=== PATIENT | female | born 1975 | race Asian ===

== ENCOUNTER 2017-07-31 11:52 | Observation (INO) | payer BC ==
[~2017-07-31] VITALS: Ht 157.5 cm; Wt 56.7 kg
[2017-07-31] VITALS (9 sets, daily range): BP systolic 110–132; BP diastolic 63–81
[~2017-07-31 11:52] MED LIST: LR 1000ml ONE; NS Irrig 1000ml ONE; Sterile Water Irrig 1000ml IRRIG ONE; Zemuron 50mg/5ml Inj IV ONE
[2017-07-31 12:31] LABS: BASOPHILS % (AUTO) 0.5 % (0.0-2.0); EOSINOPHILS % (AUTO) 0.2 % (0.0-3.0); HEMATOCRIT 29.2 % (37.0-47.0); HEMOGLOBIN 9.7 G/DL (12.0-16.0); LYMPHOCYTES % (AUTO) 20.9 % (20.0-45.0); MEAN CORPUSCULAR VOLUME 90 FL (80-99); MONOCYTES % (AUTO) 8.9 % (1.0-10.0); NEUTROPHILS % (AUTO) 69.6 % (45.0-75.0); PLATELET COUNT 181 K/UL (150-450); RED BLOOD COUNT 3.24 M/UL (4.20-5.40); RED CELL DISTRIBUTION WIDTH 11.5 % (11.6-14.8); WHITE BLOOD COUNT 10.7 K/UL (4.8-10.8)
--- NOTE | 2017-07-31 12:40 | Emergency Room Report ---
History of Present Illness General Chief Complaint: General Complaint Source: Patient Present Illness HPI This patient presents at the instruction of her plastic surgeon. She underwent a abdominoplasty yesterday. She presented to her plastic surgeon's office this morning. She had significant amount of blood in her JEROME drains. This is much more than typical. The patient's plastic surgeon is concerned she has a hematoma. Patient otherwise has no complaints. She denies pain. She denies fever or chills. She denies nausea or vomiting. She denies chest pain or shortness of breath. Allergies: Coded Allergies: No Known Allergies (Unverified , 07/31/17) Patient History Past Medical History: asthma Social History: Denies: smoking, alcohol use, drug use Reviewed Nursing Documentation: PMH: Agreed; PSxH: Agreed Nursing Documentation-PMH Past Medical History: No History, Except For Hx Asthma: Yes Review of Systems All Other Systems: negative except mentioned in HPI Physical Exam Vital Signs Date Time Temp Pulse Resp B/P (MAP) Pulse Ox O2 Delivery O2 Flow Rate FiO2 07/31/17 11:51 100.0 88 16 118/77 98 Room Air 100.0 Sp02 EP Interpretation: reviewed, normal General Appearance: no apparent distress, alert, GCS 15, non-toxic Head: normocephalic, atraumatic Eyes: bilateral eye normal inspection, bilateral eye PERRL ENT: hearing grossly normal, normal pharynx, no angioedema, normal voice Neck: full range of motion, supple/symm/no masses Respiratory: chest non-tender, lungs clear, normal breath sounds, speaking full sentences Cardiovascular #1: regular rate, rhythm, no edema Gastrointestinal: soft, non-distended, other - Abdominal binder in place. JEROME drains with blood. Rectal: deferred Musculoskeletal: back normal, gait/station normal, normal range of motion, non- tender Neurologic: alert, oriented x3, responsive, motor strength/tone normal, sensory intact, speech normal Psychiatric: judgement/insight normal, memory normal, mood/affect normal, no suicidal/homicidal ideation Skin: normal color, no rash, warm/dry, well hydrated Medical Decision Making Diagnostic Impression: Primary Impression: Post-op bleeding ER Course This patient has postoperative bleeding. Likely this patient has a bleeding blood vessel. The patient's plastic surgeon was bedside. The patient will be admitted for surgical revision and identification of location of the bleeding vessel. At this time, the patient's hemoglobin is 9.7 the patient's blood pressures normal and stable. The patient's heart rate is also normal. So at this time, although I will type and cross this patient as a precaution, she does not require blood transfusion. She is admitted for surgical revision of her abdominoplasty. EKG Diagnostic Results Rate: normal Rhythm: NSR ST Segments: no acute changes Rhythm Strip Diag. Results EP Interpretation: yes Rate: 90's Rhythm: NSR, no PVC's, no ectopy Last Vital Signs Date Time Temp Pulse Resp B/P (MAP) Pulse Ox O2 Delivery O2 Flow Rate FiO2 07/31/17 12:36 98.7 82 17 112/75 100 Room Air 98.7 Disposition: ADMITTED INPATIENT Condition: Serious Referrals: NOT CHOSEN CALI/,REFERRING (PCP) BELLA STONE D.O. July 31, 2017 12:40
[2017-07-31 12:42] LABS: ANION GAP 4 mmol/L (5-15); BLOOD UREA NITROGEN 9 mg/dL (7-18); CALCIUM 8.3 MG/DL (8.5-10.1); CARBON DIOXIDE 30 MMOL/L (21-32); CHLORIDE 108 MMOL/L (98-107); CREATININE 0.9 MG/DL (0.55-1.30); POTASSIUM 3.9 MMOL/L (3.5-5.1); SODIUM 142 MMOL/L (136-145)
[2017-07-31 12:47] LABS: ALANINE AMINOTRANSFERASE 25 U/L (12-78); ALKALINE PHOSPHATASE 36 U/L (46-116); ASPARTATE AMINO TRANSFERASE 36 U/L (15-37); BILIRUBIN,TOTAL 0.3 MG/DL (0.2-1.0)
[2017-07-31 13:06] LABS: INR 1.1 (0.9-1.1)
[2017-07-31] MEDS ORDERED: Albuterol 90mcg Inhaler 8gm INH ONE (14:41)
[2017-07-31] MEDS ORDERED: Bacitracin 50000 Units Vial ONE ×4 (14:53→17:39)
[2017-07-31] MEDS ORDERED: NS Irrig 1000ml IRRIG ONE ×2 (15:00)
[2017-07-31] MEDS ORDERED: Bacitracin Oint 15gm Tube TOPIC ONE (15:09)
--- NOTE | 2017-07-31 15:32 | Immediate Post-Op Evaluation ---
Immediate Post-Op Evalulation Immediate Post-Op Evalulation Procedure: Evacuation Abdominal Hematoma Date of Evaluation: July 31, 2017 Time of Evaluation: 20:47 IV Fluids: 400 LR Blood Products: 0 Estimated Blood Loss: 30 Urinary Output: 100 Blood Pressure Systolic: 132 Blood Pressure Diastolic: 63 Pulse Rate: 109 Respiratory Rate: 16 O2 Sat by Pulse Oximetry: 100 Temperature (Fahrenheit): 99 Pain Score (1-10): 2 Nausea: No Vomiting: No Complications 0 Patient Status: awake, reacts, patent, none Hydration Status: adequate Dru Gram Ancef IV Given Within 1 Hr of Incision: Yes Time Given: 15:16 Sid Schwartz MD July 31, 2017 15:32
--- NOTE | 2017-07-31 15:32 | 48 Hour Post Anesthesia Eval ---
Post Anesthesia Evaluation Procedure: Evacuation Hematoma Date of Evaluation: July 31, 2017 Time of Evaluation: 22:53 Blood Pressure Systolic: 121 0: 72 Pulse Rate: 89 Respiratory Rate: 18 Temperature (Fahrenheit): 98.6 O2 Sat by Pulse Oximetry: 100 Airway: patent Nausea: No Vomiting: No Pain Intensity: 2 Hydration Status: adequate Cardiopulmonary Status: Stable Mental Status/LOC: patient returned to baseline Follow-up Care/Observations: 0 Post-Anesthesia Complications: 0 Follow-up care needed: N/A Sid Schwartz MD July 31, 2017 15:32
--- NOTE | 2017-07-31 15:32 | Anethesia Preoperative Eval ---
Anesthesia Pre-op PMH/ROS General Date of Evaluation: July 31, 2017 Anesthesiologist: Efren ASA Score: ASA 2 - Emergency Mallampati Score Class I : Soft palate, uvula, fauces, pillars visible Class II: Soft palate, uvula, fauces visible Class III: Soft palate, base of uvula visible Class IV: Only hard plate visible Mallampati Classification: Class I Surgeon: Ladi Diagnosis: Hematoma Abdomen Surgical Procedure: Evacuation Abdominal Hematoma Anesthesia History: none Family History: no anesthesia problems Allergies: Coded Allergies: No Known Allergies (Unverified , 07/31/17) Medications: see eMAR Past Medical History Pulmonary: Reports: asthma PSxH Narrative: Abdominoplasty yesterday Anesthesia Pre-op Phys. Exam Physician Exam Last Vital Signs Date Time Temp Pulse Resp B/P (MAP) Pulse Ox O2 Delivery O2 Flow Rate FiO2 07/31/17 14:59 98.9 94 16 105/69 98 Room Air 98.7 Constitutional: NAD Neurologic: CN 2-12 intact Cardiovascular: RRR Respiratory: CTA Gastrointestinal: S/NT/ND Airway Exam Mallampati Score: Class I MO: full ROM: full Teeth: intact Anesthesia Pre-op A/P Labs Hematology Test 07/31/17 12:14 White Blood Count 10.7 K/UL (4.8-10.8) Red Blood Count 3.24 M/UL (4.20-5.40) L Hemoglobin 9.7 G/DL (12.0-16.0) L Hematocrit 29.2 % (37.0-47.0) L Mean Corpuscular Volume 90 FL (80-99) Mean Corpuscular Hemoglobin 30.1 PG (27.0-31.0) Mean Corpuscular Hemoglobin Concent 33.3 G/DL (32.0-36.0) Red Cell Distribution Width 11.5 % (11.6-14.8) L Platelet Count 181 K/UL (150-450) Mean Platelet Volume 8.1 FL (6.5-10.1) Neutrophils (%) (Auto) 69.6 % (45.0-75.0) Lymphocytes (%) (Auto) 20.9 % (20.0-45.0) Monocytes (%) (Auto) 8.9 % (1.0-10.0) Eosinophils (%) (Auto) 0.2 % (0.0-3.0) Basophils (%) (Auto) 0.5 % (0.0-2.0) Coagulation Test 07/31/17 12:14 Prothrombin Time 11.2 SEC (9.30-11.50) Prothromb Time International Ratio 1.1 (0.9-1.1) Activated Partial Thromboplast Time 28 SEC (23-33) Chemistry Test 07/31/17 12:14 Sodium Level 142 MMOL/L (136-145) Potassium Level 3.9 MMOL/L (3.5-5.1) Chloride Level 108 MMOL/L (98-107) H Carbon Dioxide Level 30 MMOL/L (21-32) Anion Gap 4 mmol/L (5-15) L Blood Urea Nitrogen 9 mg/dL (7-18) Creatinine 0.9 MG/DL (0.55-1.30) Estimat Glomerular Filtration Rate > 60 mL/min (>60) Glucose Level 115 MG/DL (74-106) H Calcium Level 8.3 MG/DL (8.5-10.1) L Total Bilirubin 0.3 MG/DL (0.2-1.0) Aspartate Amino Transf (AST/SGOT) 36 U/L (15-37) Alanine Aminotransferase (ALT/SGPT) 25 U/L (12-78) Alkaline Phosphatase 36 U/L (46-116) L Total Protein 6.1 G/DL (6.4-8.2) L Albumin 3.0 G/DL (3.4-5.0) L Globulin 3.1 g/dL Albumin/Globulin Ratio 1.0 (1.0-2.7) Human Chorionic Gonadotropin, Qual Negative Serum Test Test 07/31/17 12:14 Human Chorionic Gonadotropin, Qual Negative Risk Assessment & Plan Assessment: ASA 2E Plan: GA, BIS Status Change Before Surgery: No Pre-Antibiotics Dru Gram Ancef IV Given Within 1 Hr of Incision: Yes Time Given: 15:16 Sid Schwartz MD July 31, 2017 15:32
[2017-07-31] MEDS ORDERED: LR 1000ml 1,000 ML IVLG SCH ×2 (15:43→21:15)
[2017-07-31] MEDS ORDERED: DiphenhydrAMINE 50mg/ml Inj IVP PRN ×2 (15:45→21:15)
[2017-07-31] MEDS ORDERED: fentaNYL 100 mcg/2 mL IV PRN ×2 (15:45→21:15)
[2017-07-31] MEDS ORDERED: HYDROcodone/Acetamin 7.5/325 tab ORAL PRN ×2 (15:45→21:15)
[2017-07-31] MEDS ORDERED: Labetalol 5mg/ml 20ml vial IV PRN ×2 (15:45→21:15)
[2017-07-31] MEDS ORDERED: Norco 5mg/325mg tab ORAL PRN ×4 (15:45→22:45)
[2017-07-31] MEDS ORDERED: Atropine Inj 1mg/10ml Syr IV PRN ×2 (15:45→21:15)
[2017-07-31] MEDS ORDERED: Metoclopramide 10mg/2ml Inj IVP PRN ×2 (15:45→21:15)
[2017-07-31] MEDS ORDERED: Midazolam 2mg/2ml Inj IVP PRN ×2 (15:45→21:15)
[2017-07-31] MEDS ORDERED: oxyCODONE HCL/Acetaminophen 5/325mg ORAL PRN ×2 (15:45→21:15)
[2017-07-31] MEDS ORDERED: LORazepam Inj 2mg/ml 1ml IV PRN ×2 (15:45→21:15)
[2017-07-31] MEDS ORDERED: Ketorolac 30mg Inj IV PRN ×4 (15:45→21:15)
[2017-07-31] MEDS ORDERED: Acetaminophen (Non formulary) 100 ML IV ONE (15:46)
[2017-07-31] MEDS ORDERED: Propofol 200mg/20ml IV ONE (15:50)
[2017-07-31] MEDS ORDERED: Dexamethasone 4mg/ml vial ONE (15:50)
[2017-07-31] MEDS ORDERED: Sodium Chloride 10ml vial INJ ONE ×2 (15:50→20:10)
[2017-07-31] MEDS ORDERED: Lidocaine 1% MPF 10mg/ml 5ml ONE ×4 (15:50→19:13)
[2017-07-31] MEDS ORDERED: Albuterol 90mcg Inhaler 8gm INH PRN ×2 (20:45→21:15)
[2017-08-01] VITALS: BP 111/74
[2017-08-01 01:29] VITALS: BP 111/74
[2017-08-01 04:00] VITALS: BP 112/66
[2017-08-01 08:00] VITALS: BP 99/67
[2017-08-01] MEDS: Cephalexin 500mg cap ORAL SCH ×3 (09:10→18:00)
[2017-08-01 12:00] VITALS: BP 110/71
--- NOTE | 2017-08-01 19:00 | History and Physical Report ---
DATE OF ADMISSION: 07/31/2017 HISTORY OF PRESENT ILLNESS: This otherwise healthy 41-year-old woman on July 30, 2017 she underwent an abdominoplasty that was uneventful. She spent the evening in Plastic surgery aftercare and the patient reported that she has gone up to use restroom and during one or two of those times in transfer to the bathroom with the [employer] she felt pulling in the abdominal area because her back was unsupported and when she presented to my office the next morning on 07/31/2017, I had noticed that the JEROME drain had sanguinous drainage and also she had lower abdominal swelling and some bruising of her hip. I looked at her JEROME records and it appeared that at around 9:40 p.m., her drain started producing a significant amount of drainage of over 100 mL. I had not been notified and over the course of the evening, it was approximately 200 mL and when she presented to my office the patient reported being a little bit lightheaded. I had not been called about the patient and so I was unable to accurately know how much blood she lost and also how long she had been bleeding and therefore the patient was transported by ambulance to the emergency department. In the emergency department, her vitals were stable. Her EKG was normal. A new set of labs were drawn which were also within normal range and she was cleared for surgery. The plan is for patient to go back to the operating room for evacuation and drainage of abdominal hematoma. PAST MEDICAL HISTORY: Asthma. PAST SURGICAL HISTORY: Breast augmentation. MEDICATIONS: Asthma medications. PHYSICAL EXAMINATION: GENERAL: The patient is alert, oriented, in no acute distress. LUNGS: Clear. She has no wheezing. CARDIOVASCULAR: Regular rate and rhythm. ABDOMEN: Soft. She does have lower abdominal swelling and some bruising in the lower leg area. The abdominal flap that is pink, warm and viable. No bruising on the abdominal flap at all. Her JEROME was sanguinous but they were not rapidly filling in any way. ASSESSMENT: The patient with postop abdominal hematoma status post abdominoplasty likely from movement and transfer. PLAN: Take her to the operating room for evacuation of hematoma. The risks, benefit, and alternative explained to the patient. Informed consent was obtained. Ching Alanis M.D. DR: Daylin JOB#: [id number] CC: PATRICIA
--- NOTE | 2017-08-01 20:15 | Operative Note - Dictated ---
DATE OF OPERATION: 07/31/2017 PREOPERATIVE DIAGNOSIS: Abdominal hematoma, status post abdominoplasty. POSTOPERATIVE DIAGNOSIS: Abdominal hematoma, status post abdominoplasty. PROCEDURE: Evacuation and washout of abdominal hematoma. SURGEON: Ching Alains M.D. ANESTHESIOLOGIST: Sid Schwartz M.D. ANESTHESIA: General with LMA. HISTORY OF PRESENT ILLNESS: This is an otherwise healthy 41-year-old woman. She had abdominoplasty on 07/30/2017, and had an uneventful surgery. Postoperatively upon walking and transfers to the bathroom, the patient developed some bleeding in her JEROME drains and some lower abdominal swelling that I discovered when she came to the office on postop day #1. On review of her JEROME drain record that the nurses had given to her at the postop aftercare, it had been evident that her drainage had increased significantly between 6:30 and 9:40 p.m. Initially, it had been only 6 mL and then one of the drains jumped to 100 mL, and when I saw her, she had lower abdominal swelling that was also tender and full. Her skin flap was completely intact, but she did have bruising along her flank area and there was sanguineous drainage in the drain. Because the patient had bled through the night without my knowledge and also she stated that she felt a little bit lightheaded, decision was made to have her taken to the emergency room in preparation for the operating room for evacuation and drainage of abdominal hematoma. Because I had not been notified of the bleeding and was unaware, the patient already had breakfast at 7:30 in the morning. She also had received her Lovenox in the morning and she was taken to the ER and then the OR to make sure that the patient was stable and had any necessary blood products available in case she needed it. The risks, benefits, and alternatives were discussed with the patient as well as her and informed consent was obtained. They understood that the risks included but not limited to rebleeding, infection, poor appearance of her wound, need for reoperation, injury to the skin flap, and scarring as well as compromised aesthetic result, however, they understood that because the patient was bleeding that she did need to go to the operating room. DESCRIPTION OF PROCEDURE: Prior to induction, the patient was warmed, SCDs were placed and activated, and she received preoperative antibiotics. Then all JEROME drains were removed and she was prepped and draped in standard surgical fashion. It had been evident that the bleeding stemmed from the right lower abdomen. She did have two pinpoint bruises on her lower abdomen where I had placed tacking sutures where I had tacked the flap down to the abdominal fascia. I very carefully using the #11 blade as well as a fine scissors, I very carefully removed her sutures. I first started over the right lower abdomen and when I opened the abdomen, there was clotted blood. The blood had filled the entire lower abdomen even tracking to the other side and also superiorly. I removed the initial clot as I could through a small incision. I examined the area where she had the tacking sutures. The two lower tacking sutures had been torn from the tissue. It was apparent that there had been some sort of shear or trauma to this area and next to the lower abdominal tacking suture where the muscle was exposed, there was a small artery in the muscle that was bleeding. I cauterized it and there was no more bleeding and then in order to completely clean out the abdomen from the old clot and hematoma, I opened up the anterior aspect of the incision just medial to the drain location because I needed to replace the drain. I kept the corners intact. I copiously irrigated the abdomen with Triple Antibiotic solution as well as Betadine several times. I then systematically went through the entire abdomen and checked for hemostasis. Anything that even looked like it might ooze or bleed was cauterized. I did this comprehensively several times checking from [id number] and back again, letting the flap relax, ensuring that the patient's blood pressure was close to her normal blood pressure, and there was meticulous hemostasis. Again, the abdomen was copiously irrigated with Triple Antibiotic solution as well as Betadine. Then 15-Maldivian JEROME drains that were flushed with Betadine and Triple Antibiotic solution were replaced using the old JEROME drain holes and sutured in place with 3-0 nylon. I then replaced the tacking sutures with 2-0 PDS to tack the flap down to the abdominal fascia and then 2-0 PDS was used as a deep suture to reattach the Hollis fascia, 3-0 Monocryl was used as deep dermal suture, and 4-0 Monocryl was used as running subcuticular suture. Bacitracin ointment was placed over the drains and also her umbilicus. A small piece of Xeroform was wrapped around the drain and then Tegaderm were placed over the drain so that they would not pull. Compression garment was placed. The patient was awakened from anesthesia without any complications and transferred to recovery room in good condition. TOTAL FLUIDS IN: One liter. TOTAL URINE OUTPUT: 500 mL. ESTIMATED BLOOD LOSS: 200 mL of old clotted blood. COMPLICATIONS: None. FINDING: Arterial bleed adjacent to a suture that had been pulled out from the tissue. Ching Alanis M.D. DR: Dennise JOB#: [id number] CC: PATRICIA
--- NOTE | 2017-08-01 23:15 | Progress Note ---
DATE: 08/01/2017 SUBJECTIVE: The patient is doing well. She has little to no postop pain. She did have a little bit of nausea and vomiting overnight. She does complain of a little bit of phlegm in her throat and she has been coughing and placing a pillow over her abdomen to support it. She told me that she ambulated twice a day and she has otherwise been doing well. Overnight, I was in direct communication with the nurse, who monitored the patient closely. She has stable vitals with heart rate in the 70s. Her blood pressure was also stable in the one-teens and her JEROME drains had low output. She came out of surgery around 9 p.m. and upon leaving a Fernando-Lipscomb drain, three hours later, the JEROME drains measured 1, 1, and 15. I had the nurse give me an update at around 3:30 a.m. and the next JEROME drains were 10, 10, and 30. They were serosanguineous and she updated me again at 6 in the morning and the drains were only 2, 2, and 15. The patient is afebrile. Vitals were stable. Her heart rate was in the 70s and her blood pressure was in the one-teens. PHYSICAL EXAMINATION: GENERAL: The patient is alert, oriented, and in no acute distress. LUNGS: Clear, but she does have a little bit of phlegm that the patient is trying to clear with coughing. Lungs clear to auscultation. ABDOMEN: Soft, nontender, and nondistended. There is no swelling in the abdominal flap. There is no bruising of abdominal flap except for two tiny points in the right lower abdomen that were present yesterday. She has resolving ecchymosis of her hips that occurred yesterday, which is improving. Her JEROME drains are serosanguineous and there is no evidence of any hematoma or bleeding in the flap that is viable. The umbilicus is pink and viable. EXTREMITIES: No clubbing, cyanosis, or edema. She has no calf tenderness. SCDs have been on at all times in bed since her first surgery and her urine is clear. ASSESSMENT: The patient is doing well postop day #1 after evacuation of hematoma after tummy tuck. PLAN: Plan is to discontinue Reed and continue careful ambulation. I have reviewed postop instructions extensively with the patient as well as her . She knows to walk bent over and not to do any twisting or shear, to allow staff and her to assist her. Continue antibiotics, pain medication, and JEROME drain monitoring. Also, the [facility], so I made arrangements for her to go back to her nursing facility. Ching Alanis M.D. DR: AYDIN JOB#: [id number] CC: PATRICIA
--- NOTE | 2017-08-02 02:45 | Discharge Summary ---
DATE OF ADMISSION: 07/31/2017 DATE OF DISCHARGE: 08/01/2017 Date of discharge from 24-hour observation after surgery is 08/01/2017 ADMISSION DIAGNOSIS: Abdominal hematoma, status post abdominoplasty. DISCHARGE DIAGNOSIS: Abdominal hematoma, status post abdominoplasty. PROCEDURE PERFORMED: Evacuation and washout of abdominal hematoma. DISCHARGE SUMMARY: This is an otherwise healthy 41-year-old woman, who underwent an uneventful abdominoplasty on 07/30/2017. Postoperatively, at the postoperative nursing facility, the patient developed bleeding overnight. Her JEROME drain went from 6 to 100 within a few hours. However, because I was not notified about any bleeding or any abnormalities, the patient continued to bleed overnight until she presented to my office for her regular postop followup where I noted that she had abdominal swelling and upon review of the JEROME drainage output, it appeared that she had blood. She was then transported to the emergency department and taken to the operating room for evacuation of hematoma. Postoperatively, the patient did well. She had stable vitals throughout her hospital stay. She did not require any blood transfusion or any product. She ambulated on postop day #1 twice. She had good urine output. The patient was taking good p.o. Arrangements were made for the patient to be transported back to the Plastic Surgery aftercare facility. Medications on discharge are Keflex, Oilmont, Zofran, and arnica She had originally been prescribed Lovenox postoperatively to prevent postop DVT, however, this was discontinued since the patient has been ambulating. Ching Alanis M.D. DR: Zaira JOB#: [id number] CC: PATRICIA
--- NOTE | 2017-08-09 13:15 | Brief Operative Note ---
Immediate Post Operative Note Operative Note Pre-op Diagnosis: Abdominal hematoma s/p abdominoplasty Procedure: Abdominal hematoma s/p abdominoplasty Post-op Diagnosis: Evacuation and draginage of post op abdominal hematoma Post-op Diagnosis: same as pre-op Surgeon: Leela Robertson Anesthesiologist: Efren Anesthesia: general Specimen: none Complications: none Condition: stable Fluids: 1L Estimated Blood Loss: minimal Drains: JEROME Implant(s) used?: No LEELA ROBERTSON August 09, 2017 13:15
== END 2017-08-01 17:45 | disposition home or self-care (01) ==
LOC: EDBD 11:52 → EMR 12:06 → 3E 12:31 → EDBEDREQ 13:12 → 3E 17:30
DX: L76.32 Postprocedural hematoma of skin and subcutaneous tissue following other procedure (principal); R11.2 Nausea with vomiting, unspecified; Y83.8 Other surgical procedures as the cause of abnormal reaction of the patient, or of later complication, without mention of misadventure at the time of the procedure; Y92.009 Unspecified place in unspecified non-institutional (private) residence as the place of occurrence of the external cause
CPT/HCPCS: 35840; 36415; 51702; 80053; 84703; 85025; 85610; 85730; 86850; 86900; 86901; 86920; 96374; 96375; 96376; 99285; G0378; J0690; J1100; J2405; J2704; J7120; 94003; 94150